=== PATIENT | female | born 1970 | race Two or more races ===

== ENCOUNTER 2020-01-24 17:41 | Emergency (ER) | payer SELFPAY ==
[~2020-01-24] VITALS: Ht 152.4 cm; Wt 57.3 kg
[2020-01-24 18:05] VITALS: BP 142/96
[2020-01-24] MEDS ORDERED: METH4TAB2 PO (18:40)
--- NOTE | 2020-01-24 18:40 | PHYS DOC ---
Past Medical History Past Medical History: Hypertension (CLAIRE ALLEN APRN) Past Surgical History: No Surgical History (CLAIRE ALLEN APRN) Smoking Status: Never Smoker Alcohol Use: None Drug Use: None (CLAIRE ALLEN APRN) Attending Signature I have participated in the care of this patient and I have reviewed and agree with all pertinent clinical information above including history, exam, and recommendations. (JAY JAY RECIO MD) Adult General Chief Complaint Chief Complaint: SORE THROAT HPI HPI Patient is a 49 year old female who presents to the emergency department with complaints of a hoarse voice for the last 2 to 3 weeks. She denies any fever, body aches, fatigue, shortness of breath, wheezing, cough, nausea, vomiting, diarrhea, or ear pain. The patient states her throat has felt sore. She denies any rash. She currently denies any pain. (CLAIRE ALLEN APRN) Review of Systems Review of Systems Complete ROS is negative unless otherwise noted in HPI. (CLAIRE ALLEN APRN) Allergies Allergies Allergies Coded Allergies Type Severity Reaction Last Updated Verified No Known Drug Allergies 03/30/14 No (JAY JAY RECIO MD) Physical Exam Physical Exam See Above Constitutional: Well developed, well nourished, no acute distress, non-toxic appearance. [] HENT: Normocephalic, atraumatic, bilateral external ears normal, posterior pharynx normal, tonsils 1+ bilaterally, oropharynx moist, no oral exudates, nose normal. [] Eyes: PERRLA, EOMI, conjunctiva normal, no discharge. [] Neck: Normal range of motion, no tenderness, supple, no stridor. [] Cardiovascular:Heart rate regular rhythm, no murmur [] Lungs & Thorax: Bilateral breath sounds clear to auscultation, Respirations even and unlabored, no retractions, no respiratory distress [] Skin: Warm, dry, no erythema, no rash. [] Extremities: No cyanosis, ROM intact, no edema. [] Neurologic: Alert and oriented X 3, no focal deficits noted. [] Psychologic: Affect normal, judgement normal, mood normal. [] (CLAIRE ALLEN APRN) Current Patient Data Vital Signs Vital Signs Date Time Temp Pulse Resp B/P (MAP) Pulse Ox O2 Delivery O2 Flow Rate FiO2 01/24/20 18:05 98.8 75 17 142/96 (111) 99 Room Air 98.8 (JAY JAY RECIO MD) EKG EKG [] (CLAIRE ALLEN APRN) Radiology/Procedures Radiology/Procedures [] (CLAIRE ALLEN APRN) Course & Med Decision Making Course & Med Decision Making Pertinent Labs and Imaging studies reviewed. (See chart for details) [] (CLAIRE ALLEN APRN) Dragon Disclaimer Dragon Disclaimer This electronic medical record was generated, in whole or in part, using a voice recognition dictation system. (CLAIRE ALLEN APRN) Departure Departure Impression: Primary Impression: Laryngitis Disposition: HOME, SELF-CARE Condition: STABLE Referrals: MCKAYLA PEDRAZA MD (PCP) Patient Instructions: Laryngitis, [id number] Additional Instructions: Fill prescription(s) and use as directed. Recommend use of a Cool mist humidifier in room at bedtime. Alternate Tylenol or ibuprofen as needed for pain/fever. Avoid airway irritants such as smoke, fragrance, dust, and pollen. Follow-up with your primary care doctor if symptoms persist, return to the ER if symptoms worsen. Scripts Methylprednisolone (MEDROL) 4 Mg Tab.ds.pk 1 PKG PO UD for 6 Days, #1 PKG 0 Refills Prov: CLAIRE ALLEN APRN 01/24/20 CLAIRE ALLEN APRN Jan 24, 2020 18:40 JAY JAY RECIO MD Jan 24, 2020 21:40
== END 2020-01-24 19:01 | disposition home or self-care (01) ==
LOC: ER 17:41
DX: J04.0 Acute laryngitis (principal); R48.0 Dyslexia and alexia; I10 Essential (primary) hypertension
CPT/HCPCS: 99283

== ENCOUNTER 2020-04-23 14:31 | Emergency (ER) | payer BC ==
[~2020-04-23] VITALS: Ht 152.4 cm; Wt 57.0 kg
[~2020-04-23 14:31] MED LIST: METH4TAB2 PO
[2020-04-23 16:13] LABS: BILIRUBIN,URINE NEGATIVE (NEG); CLARITY,URINE CLEAR; COLOR,URINE YELLOW; NITRITE,URINE NEGATIVE (NEG); PROTEIN,URINE NEGATIVE (NEG-TRACE); UROBILINOGEN,URINE 0.2 mg/dL (0.2 mg/dL)
[2020-04-23 16:15] LABS: BASO # 0.1 x10^3/uL (0.0-0.2); BASO % 1 % (0-3); EOS # 0.1 x10^3/uL (0.0-0.7); EOS % 1 % (0-3); HEMATOCRIT 28.4 % (36.0-47.0); HEMOGLOBIN 8.6 g/dL (12.0-15.5); LYMPH # 1.8 x10^3/uL (1.0-4.8); LYMPH % 21 % (24-48); MEAN CORPUSCULAR HEMOGLOBIN 20 pg (25-35); MEAN CORPUSCULAR HGB CONC 30 g/dL (31-37); MEAN CORPUSCULAR VOLUME 65 fL (79-100); MONO # 0.5 x10^3/uL (0.0-1.1); MONO % 6 % (0-9); NEUT # 6.5 x10^3/uL (1.8-7.7); NEUT % 72 % (31-73); PLATELET COUNT 411 x10^3/uL (140-400); RED BLOOD COUNT 4.34 x10^6/uL (3.50-5.40); RED CELL DISTRIBUTION WIDTH 17.6 % (11.5-14.5); WHITE BLOOD COUNT 8.9 x10^3/uL (4.0-11.0)
[2020-04-23 16:23] LABS: CREATININE 0.8 mg/dL (0.6-1.0); GFR 75.6; POTASSIUM 3.6 mmol/L (3.5-5.1)
[2020-04-23 16:29] LABS: MAGNESIUM 2.1 mg/dL (1.8-2.4); TOTAL BILIRUBIN 0.5 mg/dL (0.2-1.0); TOTAL PROTEIN 8.2 g/dL (6.4-8.2)
[2020-04-23] MEDS ORDERED: LIDO:MAALOX 1:1 20 ML SINGLE DOSE. SWSW ONE (16:30)
--- NOTE | 2020-04-23 16:32 | RAD ---
EXAM: Chest, single view. HISTORY: Cough. COMPARISON: 12/02/2014 FINDINGS: A frontal view of the chest is obtained. There is no infiltrate, pleural effusion or pneumothorax. The heart is normal in size. IMPRESSION: No acute pulmonary finding. Electronically signed by: Devi Carlos MD (04/23/2020 4:29 PM) [id number]
[2020-04-23 16:39] LABS: SQUAMOUS EPITHELIAL CELL,UR FEW /LPF
[2020-04-23 16:40] LABS: AMORPHOUS SEDIMENT,UR PRESENT /HPF; BACTERIA,URINE FEW /HPF (0-FEW); RBC,URINE 0 /HPF (0-2); WBC,URINE 0 /HPF (0-4)
[2020-04-23 17:04] LABS: ANISOCYTOSIS SLIGHT; HYPOCHROMIA MARKED; MICROCYTOSIS MARKED; OVALOCYTES MOD; PLT ESTIMATE INCREASED (ADEQUATE); POLYCHROMASIA SLIGHT; TEAR DROP CELLS FEW
[2020-04-23 17:05] LABS: SCHISTOCYTES OCC
[2020-04-23] MEDS ORDERED: IOHEXOL 300 MG/ML 100ML VIAL. IV ONE (17:15)
[2020-04-23] MEDS ORDERED: CONTRAST GIVEN. MC PRN (17:15)
--- NOTE | 2020-04-23 17:20 | PHYS DOC ---
Past Medical History Past Medical History: Hypertension (PAULIE GIANG DO) Past Surgical History: No Surgical History (PAULIE GIANG DO) Smoking Status: Never Smoker Alcohol Use: None Drug Use: None (PAULIE GIANG DO) General Adult EDM: Chief Complaint: ABDOMINAL PAIN HPI: HPI: Patient is a 49 year old female who presented to ER today for evaluation of abdominal pain off and on for 3 months. Patient said whenever she wakes up in the morning she feels like her food was not digested. Patient also complained sore throat in the morning, dry cough as well. Patient denies any chest pain, no trouble breathing, no fever. Patient has history hypertension, denies any history of diabetes, no history of coronary disease. Patient'S daughter translated for her. (PAULIE GIANG DO) Review of Systems: Review of Systems: Constitutional: Denies fever or chills. [] Eyes: Denies change in visual acuity. [] HENT: Denies nasal congestion or sore throat. [] Respiratory: Positive for DRIED COUGH, no trouble breathing. Cardiovascular: Denies chest pain or edema. [] GI: Positive for abdominal pain [] : Denies dysuria. [] Musculoskeletal: Denies back pain or joint pain. [] Integument: Denies rash. [] Neurologic: Denies headache, focal weakness or sensory changes. [] Endocrine: Denies polyuria or polydipsia. [] Lymphatic: Denies swollen glands. [] Psychiatric: Denies depression or anxiety. [] (PAULIE GIANG DO) Heart Score: Risk Factors: Risk Factors: DM, Current or recent (<one month) smoker, HTN, HLP, family history of CAD, obesity. Risk Scores: Score 0 - 3: 2.5% MACE over next 6 weeks - Discharge Home Score 4 - 6: 20.3% MACE over next 6 weeks - Admit for Clinical Observation Score 7 - 10: 72.7% MACE over next 6 weeks - Early Invasive Strategies (PAULIE GIANG DO) Current Medications: Current Medications Medications (Trade) Dose Ordered Sig/Sarah Start Time Stop Time Status Last Admin Dose Admin Info (CONTRAST GIVEN -- Rx MONITORING) 1 each PRN DAILY PRN 04/23/20 17:15 04/25/20 17:14 Iohexol (Omnipaque 300 Mg/ml) 75 ml 1X ONCE 04/23/20 17:15 04/23/20 17:16 Multi-Ingredient Mouthwash/Gargle (Gi Cocktail) 20 ml 1X ONCE 04/23/20 16:30 04/23/20 16:31 DC 04/23/20 16:35 20 ML (PAULIE GIANG DO) Allergies: Allergies: Allergies Coded Allergies Type Severity Reaction Last Updated Verified No Known Drug Allergies 03/30/14 No (PAULIE GIANG DO) Physical Exam: PE: Constitutional: Well developed, well nourished, no acute distress, non-toxic appearance. [] HENT: Normocephalic, atraumatic, bilateral external ears normal, oropharynx moist, no oral exudates, nose normal. Eyes: PERRLA, EOMI, conjunctiva normal, no discharge. [] Neck: Normal range of motion, no tenderness, supple, no stridor. [] Cardiovascular:Heart rate regular rhythm, no murmur [] Lungs & Thorax: Bilateral breath sounds clear to auscultation [] Abdomen: Bowel sounds normal, soft, THERE IS tenderness TO PALPATION IN EPIGASTRIC AREA AND PERIUMBILICAL AREA, no masses, no pulsatile masses. [] Skin: Warm, dry, no erythema, no rash. [] Back: No tenderness, no CVA tenderness. [] Extremities: No tenderness, no cyanosis, no clubbing, ROM intact, no edema. [] Neurologic: Alert and oriented X 3, normal motor function, normal sensory function, no focal deficits noted. [] Psychologic: Affect normal, judgement normal, mood normal. [] (PAULIE GIANG DO) Current Patient Data: Labs: Laboratory Tests Test 04/23/20 16:00 White Blood Count 8.9 x10^3/uL (4.0-11.0) Red Blood Count 4.34 x10^6/uL (3.50-5.40) Hemoglobin 8.6 g/dL (12.0-15.5) L Hematocrit 28.4 % (36.0-47.0) L Mean Corpuscular Volume 65 fL (79-100) L Mean Corpuscular Hemoglobin 20 pg (25-35) L Mean Corpuscular Hemoglobin Concent 30 g/dL (31-37) L Red Cell Distribution Width 17.6 % (11.5-14.5) H Platelet Count 411 x10^3/uL (140-400) H Neutrophils (%) (Auto) 72 % (31-73) Lymphocytes (%) (Auto) 21 % (24-48) L Monocytes (%) (Auto) 6 % (0-9) Eosinophils (%) (Auto) 1 % (0-3) Basophils (%) (Auto) 1 % (0-3) Neutrophils # (Auto) 6.5 x10^3/uL (1.8-7.7) Lymphocytes # (Auto) 1.8 x10^3/uL (1.0-4.8) Monocytes # (Auto) 0.5 x10^3/uL (0.0-1.1) Eosinophils # (Auto) 0.1 x10^3/uL (0.0-0.7) Basophils # (Auto) 0.1 x10^3/uL (0.0-0.2) Platelet Estimate Increased (ADEQUATE) Polychromasia Slight Hypochromasia Marked Anisocytosis Slight Microcytosis Marked Tear Drop Cells Few Ovalocytes Mod Schistocytes Occ Urine Collection Type Unknown Urine Color Yellow Urine Clarity Clear Urine pH 5.0 (<5.0-8.0) Urine Specific O'Brien <=1.005 (1.000-1.030) Urine Protein Negative mg/dL (NEG-TRACE) Urine Glucose (UA) Negative mg/dL (NEG) Urine Ketones (Stick) Negative mg/dL (NEG) Urine Blood Negative (NEG) Urine Nitrite Negative (NEG) Urine Bilirubin Negative (NEG) Urine Urobilinogen Dipstick 0.2 mg/dL (0.2 mg/dL) Urine Leukocyte Esterase Negative (NEG) Urine RBC 0 /HPF (0-2) Urine WBC 0 /HPF (0-4) Urine Squamous Epithelial Cells Few /LPF Urine Amorphous Sediment Present /HPF Urine Bacteria Few /HPF (0-FEW) Sodium Level 140 mmol/L (136-145) Potassium Level 3.6 mmol/L (3.5-5.1) Chloride Level 104 mmol/L (98-107) Carbon Dioxide Level 26 mmol/L (21-32) Anion Gap 10 (6-14) Blood Urea Nitrogen 7 mg/dL (7-20) Creatinine 0.8 mg/dL (0.6-1.0) Estimated GFR (Cockcroft-Gault) 75.6 BUN/Creatinine Ratio 9 (6-20) Glucose Level 93 mg/dL (70-99) Calcium Level 9.0 mg/dL (8.5-10.1) Magnesium Level 2.1 mg/dL (1.8-2.4) Total Bilirubin 0.5 mg/dL (0.2-1.0) Aspartate Amino Transferase (AST) 25 U/L (15-37) Alanine Aminotransferase (ALT) 39 U/L (14-59) Alkaline Phosphatase 75 U/L (46-116) Total Protein 8.2 g/dL (6.4-8.2) Albumin 4.0 g/dL (3.4-5.0) Albumin/Globulin Ratio 1.0 (1.0-1.7) Lipase 115 U/L (73-393) Laboratory Tests 04/23/20 16:00 Laboratory Tests 04/23/20 16:00 Vital Signs: Vital Signs Date Time Temp Pulse Resp B/P (MAP) Pulse Ox O2 Delivery O2 Flow Rate FiO2 04/23/20 15:35 98.6 71 18 144/94 (111) 100 Room Air 98.6 (PAULIE GIANG DO) EKG: EKG: [] (PAULIE GIANG DO) Radiology/Procedures: Radiology/Procedures: [][facility] [address] [place] [address] IMAGING REPORT Signed PATIENT: BROOKS MCLEAN ACCOUNT: [id number] : 1970 LOCATION: ER AGE: 49 SEX: F EXAM STATUS: REG ER ORD. PHYSICIAN: PAULIE GIANG DO REASON: ABDOMINAL PAIN PROCEDURE: CT ABD PELV W/ IV CONTRST ONLY Study: CT abdomen/pelvis with intravenous contrast Indication: Abdominal pain. Comparison: None. Technique: Helical CT imaging performed of the abdomen and pelvis after the intravenous administration of 75 cc Omnipaque 300 contrast. Sagittal and coronal reformats were obtained. One or more of the following individualized dose reduction techniques were utilized for this examination: 1. Automated exposure control 2. Adjustment of the mA and/or kV according to patient size 3. Use of iterative reconstruction technique. Findings: The visualized thoracic contents are unremarkable. Low-attenuation focus within the right hepatic lobe on image 21 series 3 measuring up to 1 cm. There may be a few additional faint subcentimeter low-attenuation foci scattered elsewhere. Within normal limits gallbladder and biliary tree. Unremarkable pancreas and adrenal glands. Within normal limits spleen. Unremarkable kidneys. The right ureter is slightly more prominent than the left but no obstructing process is identified. Bulbous uterine fundus with heterogeneous attenuation at this location most likely on account of fibroids. Unremarkable colon and appendix. Nonobstructed small bowel. Limited assessment of the stomach due to underdistention. Nonaneurysmal aorta. Mild atheromatous plaque at the lower abdominal aorta. No lymphadenopathy. No free fluid or gas. No acute or aggressive osseous process. Chronic bilateral pars defects at L5. Nonspecific sclerosis at the anterior/inferior aspect of the L1-L3 vertebral bodies. This can be seen in the setting of a seronegative spondyloarthropathy but there are no findings elsewhere throughout the imaged body to suggest as such. Impression: 1. No acute abnormality seen throughout the abdomen or pelvis. 2. Bulbous uterine fundus with heterogeneous attenuation favored on account of uterine fibroids. 3. Chronic bilateral pars defects at L5. 4. A few low-attenuation foci involving the liver statistically most likely to be benign in the absence of a known malignancy. No dedicated follow-up is needed based on consensus recommendations unless otherwise clinically indicated. Electronically signed by: ALBERTO CORONADO MD (04/23/2020 6:09 PM) [id number] DICTATED and SIGNED BY: ALBERTO CORONADO MD DATE: 04/23/20 1809 (PAULIE GIANG DO) Impression: PROCEDURE: PELVIS ULTRASOUND PELVIS ULTRASOUND Clinical Indication: Reason: pelvic pain, abdominal pain / Comparison: CT abdomen and pelvis with contrast, earlier same day. TECHNIQUE: Real-time ultrasound imaging of the pelvis using transabdominal window is performed. Findings: No pelvic free fluid is identified. Uterus measures 7.8 x 7 x 4.3 cm. Myomatous uterus. The largest fibroid is subserosal and posterior near the fundus measuring up to 2.6 cm. The endometrial stripe is normal measuring 3 mm. There is normal blood flow in the ovaries. The ovaries are similar in size. The visualized urinary bladder is unremarkable. No evidence of adnexal mass. IMPRESSION: 1. There is a subserosal uterine fibroid of the posterior fundus. 2. Normal blood flow in the ovaries. 3. No pelvic free fluid. Electronically signed by: Wil Carlin MD (04/23/2020 7:32 PM) [facility] (LAURENCE CHANEL Jr. DO) Course & Med Decision Making: Course & Med Decision Making Pertinent Labs and Imaging studies reviewed. (See chart for details) Patient is a 49-year-old female who was evaluated in ER due to 3-month history of abdominal pain, CT scan of her abdomen pelvic show some fibroid, patient will need a pelvic ultrasound done tonight. Patient care was endorsed to Dr. Laurence Chanel at shift change. (PAULIE GIANG DO) Dragon Disclaimer: Dragon Disclaimer: This electronic medical record was generated, in whole or in part, using a voice recognition dictation system. (PAULIE GIANG DO) Departure Departure Impression: Primary Impression: Fibroid, uterine Qualified Codes: D25.9 - Leiomyoma of uterus, unspecified Disposition: 01 HOME, SELF-CARE Condition: STABLE Referrals: MCKAYLA PEDRAZA MD (PCP) Patient Instructions: Uterine Fibroid, [id number] Justicifation of Admission Dx: Justifications for Admission: Justification of Admission Dx: N/A (PAULIE GIANG DO) PAULIE GIANG DO Apr 23, 2020 17:20 LAURENCE CHANEL Jr., DO Apr 23, 2020 19:45
[2020-04-23] MEDS ORDERED: FAMOTIDINE 20 MG/2 ML VIAL IVP ONE (17:30)
--- NOTE | 2020-04-23 18:12 | RAD ---
Study: CT abdomen/pelvis with intravenous contrast Indication: Abdominal pain. Comparison: None. Technique: Helical CT imaging performed of the abdomen and pelvis after the intravenous administration of 75 cc Omnipaque 300 contrast. Sagittal and coronal reformats were obtained. One or more of the following individualized dose reduction techniques were utilized for this examination: 1. Automated exposure control 2. Adjustment of the mA and/or kV according to patient size 3. Use of iterative reconstruction technique. Findings: The visualized thoracic contents are unremarkable. Low-attenuation focus within the right hepatic lobe on image 21 series 3 measuring up to 1 cm. There may be a few additional faint subcentimeter low-attenuation foci scattered elsewhere. Within normal limits gallbladder and biliary tree. Unremarkable pancreas and adrenal glands. Within normal limits spleen. Unremarkable kidneys. The right ureter is slightly more prominent than the left but no obstructing process is identified. Bulbous uterine fundus with heterogeneous attenuation at this location most likely on account of fibroids. Unremarkable colon and appendix. Nonobstructed small bowel. Limited assessment of the stomach due to underdistention. Nonaneurysmal aorta. Mild atheromatous plaque at the lower abdominal aorta. No lymphadenopathy. No free fluid or gas. No acute or aggressive osseous process. Chronic bilateral pars defects at L5. Nonspecific sclerosis at the anterior/inferior aspect of the L1-L3 vertebral bodies. This can be seen in the setting of a seronegative spondyloarthropathy but there are no findings elsewhere throughout the imaged body to suggest as such. Impression: 1. No acute abnormality seen throughout the abdomen or pelvis. 2. Bulbous uterine fundus with heterogeneous attenuation favored on account of uterine fibroids. 3. Chronic bilateral pars defects at L5. 4. A few low-attenuation foci involving the liver statistically most likely to be benign in the absence of a known malignancy. No dedicated follow-up is needed based on consensus recommendations unless otherwise clinically indicated. Electronically signed by: ALBERTO CORONADO MD (04/23/2020 6:09 PM) [id number]
[2020-04-23] MEDS ORDERED: KETOROLAC 30 MG/ML VIAL. IVP ONE (18:30)
[2020-04-23 19:30] VITALS: BP 129/88
--- NOTE | 2020-04-23 19:35 | RAD ---
PELVIS ULTRASOUND Clinical Indication: Reason: pelvic pain, abdominal pain / Comparison: CT abdomen and pelvis with contrast, earlier same day. TECHNIQUE: Real-time ultrasound imaging of the pelvis using transabdominal window is performed. Findings: No pelvic free fluid is identified. Uterus measures 7.8 x 7 x 4.3 cm. Myomatous uterus. The largest fibroid is subserosal and posterior near the fundus measuring up to 2.6 cm. The endometrial stripe is normal measuring 3 mm. There is normal blood flow in the ovaries. The ovaries are similar in size. The visualized urinary bladder is unremarkable. No evidence of adnexal mass. IMPRESSION: 1. There is a subserosal uterine fibroid of the posterior fundus. 2. Normal blood flow in the ovaries. 3. No pelvic free fluid. Electronically signed by: Wil Carlin MD (04/23/2020 7:32 PM) [facility]
[2020-04-23] MEDS ORDERED: ONDA4TAB12 PO (19:52)
[2020-04-23] MEDS ORDERED: TRAM50TA PO (19:52)
== END 2020-04-23 20:08 | disposition home or self-care (01) ==
LOC: ER 14:31
DX: D25.9 Leiomyoma of uterus, unspecified (principal); J02.9 Acute pharyngitis, unspecified; R05 Cough; R10.9 Unspecified abdominal pain; I10 Essential (primary) hypertension
CPT/HCPCS: 36415; 71045; 74177; 76856; 80053; 81001; 83690; 83735; 85025; 96374; 96375; 99285; J1885; J3490; Q9967